=== PATIENT | male | born 1990 | race Caucasian/White ===

== ENCOUNTER 2025-01-21 10:27 | Outpatient (REF) | payer MEDICAID, SELFPAY ==
[2025-01-21 11:47] LABS: MANUAL DIFF FLAG NO
[2025-01-21 12:03] LABS: Hematocrit 45.4 % (42.0-52.0); Hemoglobin 15.4 g/dl (14.0-18.0); Imm Gran Abs Auto 0.01 X10*3/uL (0.00-0.03); Imm Gran Pct Auto 0.2 % (0.0-0.4); Lymphocytes Absolute Auto 1.8 X10*3/uL (1.2-4.9); Mean Corpuscular HGB Conc 33.9 g/dl (31.0-36.0); Mean Corpuscular Hemoglobin 30.8 pg (27.0-33.0); Mean Corpuscular Volume 90.8 fL (80.0-98.0); NRBC Abs Auto 0.000 X10*3/uL (0.0-0.012); NRBC Pct Auto 0.0 /100WBC (0.0-0.2); Platelet Count 213 X10*3/uL (160-400); Red Blood Count 5.00 X10*6/uL (4.60-5.80); White Blood Count 4.8 X10*3/uL (4.8-10.8)
--- OUTSIDE RECORDS SUMMARY | 2025-01-21 12:22 | XMS_ITS | Clinical Summary ---
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 Associated with blurred vision. Pt reports the headache lasted until the next day when he was seen in the ER and treated. 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 There is no hemorrhage or acute territorial infarct. No significant white matter disease, No hydrocephalus.Visualized paranasal sinuses are clear. Mastoid air cells are clear.There was some stranding of the scalp at the posterior vertex without underlying fracture evident. Today patient tells me the headache has not returned but he reports intermittent left ocular pain for years. Etiology? Plan: Repeat CT to ensure that stranding of the scalp at the posterior vertex has resolved. Neurology consult, Ophthalmology evaluation Ocular pain, left eye 01/02/2025 Assessment & Plan (01/02/2025 10:03 AM EDT): Pt reports intermittent left ocular pain for years associated with redness. On exam today no abnormalities Plan: Ophthalmology evaluation Encounters Date Type Department Care Team Description 01/02/2025 9:30 AM EDT Office Visit [facility] [address] [place] [address] Matt Baron MD Ocular pain, left eye (Primary Dx); Nonintractable episodic headache, unspecified headache type 01/02/2025 Travel 01/01/2025 Telephone [facility] [address] [place] [address] Brenda Hobson MA chart prep 12/26/2024 Patient Outreach [facility] [address] [place] [address] Matt Baron MD Pre-visit Planning ([facility] unable to reach, Disconnected) from Last 3 Months Family History Medical History Relation Name Comments Diabetes Father Hypertension Father Uterine cancer Mother Relation Name Status Comments Father Mother Social History Tobacco Use Types Packs/Day Years Used Date Smoking Tobacco: Every Day Cigarettes Passive Smoke Exposure: Current Smokeless Tobacco: Never Tobacco Cessation:Ready to Q uit: Not Asked; Counseling Given: Not Answered Depression Answer Date Recorded Patient Health Questionnaire-9 Score 1 01/02/2025 Patient Health Questionnaire-9 Score 1 01/02/2025 Last PHQ-9: Questionnaire Data Not on file 0 01/02/2025 Housing Stability Answer Date Recorded What is your housing situation today? I have edgarmaci ramirez 01/02/[address] you li ve. Do you have problems with any of the following? None of the above 01/02/2025 Food Insecurity Answer Date Recorded Within the past 12 months, y ou worried that your food would run out before you got money to buy more: Never True 01/02/2025 Within the past 12 months,th e food you bought just didn't last and you didn't have enough money to get more: Never True Transportation Answer Date Recorded In the past 12 months, has l ack of transportation kept you from medical appts, meetings, work or from getting things needed for daily living? No 01/02/2025 Depression Answer Date Recorded Patient Health Questionnaire-2 Score 0 01/02/2025 Internet Access Answer Date Recorded Internet Access Q1 No 01/02/2025 Internet Access Q2 Not on file 01/02/2025 Sex and Gender Information Value Date Recorded Sex Assigned at Male 04/23/2024 2:51 PM EST Legal Sex Male 1:43 PM EST Gender Identity Male 04/23/2024 2:51 PM EST Sexual Orientation Straight 04/23/2024 2: 51 PM EST Last Filed Vital Signs Vital Sign Reading Time Taken Comments Blood Pressure 90/60 01/02/2025 9:38 AM EDT Pulse 55 01/02/2025 9:38 AM EDT Temperature 36 C (96.8 F) 01/02/2025 9:38 AM EDT Respiratory Rate 16 01/02/2025 9:38 AM EDT Oxygen Saturation 100% 01/02/2025 9:38 AM EDT Inhaled Oxygen Concentration - - Weight 49 kg (108 lb) 01/02/2025 9:38 AM EDT Height 171.6 cm (5' 7.57 ) 01/02/2025 9:38 AM ED T Body Mass Index 16.63 01/02/2025 9:38 AM EDT Plan of Treatment Upcoming Encounters Date Type Department Care Team (Late st Contact Info) Description 03/25/2025 10:15 AM EST Office Visit [facility] [address] [place] [address] Matt Baron MD [address] [place] [address] Health Maintenance Due Date Last Done Comments HIV Screening 1992 Lipid Panel 1992 SDOH Screening 1992 Family Planning (PISQ) 07/05/2007 HPV Vaccines (1 - Male 3-dos e series) 07/05/2007 Hepatitis C Screening 2010 DTaP/Tdap/Td Vaccines (1 - Tdap) 07/05/2011 Hepatitis B Vaccines (1 of 3 - 19+ 3-dose series) 07/05/2011 Pneumococcal Vaccine: Pediatrics (0 to 5 Years) and At-Risk Patients (6 to 49) Years (1 of 2 - PCV) 07/05/2011 COVID-19 Vaccine (1 - 2023-2 5 season) 2024 Influenza Vaccine (#1) 2024 Alcohol/Substance Use Screening 01/02/2026 01/02/2025 Depression Screening 01/02/2026 01/02/2025, 01/02/2025 Disability Screening 01/02/2026 01/02/2025 Tobacco Screening 01/02/2026 01/02/2025 Zoster Vaccines (1 of 2) 2042 RSV Patients and Patients Aged 60 years or older (1 - 1-dose 75+ series) 07/05/2067 HIB Vaccines Aged Out No longer eligi ble based on patient's age to complete this topic Hepatitis A Vaccines Aged Out No long er eligible based on patient's age to complete this topic IPV Vaccines Aged Out No longer eligi ble based on patient's age to complete this topic Meningococcal B Vaccine Aged Out No l onger eligible based on patient's age to complete this topic Meningococcal Vaccine Aged Out No neisha siirsha eligible based on patient's age to complete this topic RSV under 20 months Aged Out No longe r eligible based on patient's age to complete this topic Rotavirus Vaccines Aged Out No longer eligible based on patient's age to complete this topic Procedures Procedure Name Priority Date/Time Associated Diagnosis Comments CBC WITH AUTO DIFFERENTIAL Routine 01/21/2025 10:46 AM EDT Ocular pain, left eye from Last 3 Months Results * (ABNORMAL) CBC auto differential (01/21/2025 10:46 AM EDT) White Blood Count 4.8 4.8 - 10.8 X10*3/uL [facility] Red Blood Count 5.00 4.60 - 5.80 X10*6/uL [facility] Hemoglobin 15.4 14.0 - 18.0 g/dl [facility] Hematocrit 45.4 42.0 - 52.0 % [facility] Mean Corpuscular Volume 90.8 80.0 - 98.0 fL [facility] Mean Corpuscular Hemoglobin 30.8 27.0 - 33.0 pg [facility] Mean Corpuscular HGB Conc 33.9 31.0 - 36.0 g/dl [facility] Red Cell Distribution Width 12.1 11.0 - 16.0 % [facility] Platelet Count 213 160 - 400 X10*3/uL [facility] Mean Platelet Volume 10.4 9.4 - 12.4 fL [facility] Neutrophils Percent Auto 49.1 45 - 73 % [facility] Imm Gran Pct Auto 0.2 0.0 - 0.4 % [facility] Lymphocytes Percent Auto 37.1 20 - 40 % [facility] Monocytes Percent Auto 12.0(H) 2 - 11 % [facility] Eosinophils Percent Auto 0.8 0 - 4 % [facility] Basophils Percent Auto 0.8 0 - 2 % [facility] NRBC Pct Auto 0.0 0.0 - 0.2 /100WBC [facility] Neutrophils Absolute Auto 2.3 2.0 - 8.3 x10*3/uL [facility] Imm Gran Abs Auto 0.01 0.00 - 0.03 X10*3/uL [facility] Lymphocytes Absolute Auto 1.8 1.2 - 4.9 X10*3/uL [facility] Monocytes Absolute Auto 0.6 0.1 - 1.2 X10*3/uL [facility] Eosinophils Absolute Auto 0.0 0.0 - 0.4 X10*3/uL [facility] Basophils Absolute Auto 0.0 0.0 - 0.2 X10*3/uL [facility] NRBC Abs Auto 0.000 0.0 - 0.012 X10*3/uL [facility] Blood Venous blood specimen / Unknown 01/21/2025 10:46 AM EDT 01/21/2025 11:45 AM EDT us Matt Harding MD LAB BLOOD ORDERABLES Final Result [facility] [address] [place] [address] [phone] from Last 3 Months Insurance [facility] C3 Care Teams Driver License 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
--- OUTSIDE RECORDS SUMMARY | 2025-01-21 12:22 | XMS_ITS | Clinical Summary ---
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 Role Phone Physician, No Pcp Primary Care Provider Unavaila ble Allergies Active Allergy Reactions Criticality Noted Date Comments Penicillin Swelling 09/11/2024 Medications No known medications Active Problems No known active problems Medical History Medical History Date Comments Patient denies medical problems Social History Tobacco Use Types Packs/Day Years Used Date Smoking Tobacco: Every Day Cigarettes Smokeless Tobacco: Former Tobacco Cessation:Ready to Q uit: Not Asked; Counseling Given: Not Answered Alcohol Use Standard Drinks/Week Comments Never 0 (1 standard drink = 0.6 oz pur e alcohol) Sex and Gender Information Value Date Recorded Sex Assigned at Not on file Legal Sex Male 11:40 AM EDT Gender Identity Not on file Sexual Orientation Not on file Obstetrics History Last Filed Vital Signs Vital Sign Reading Time Taken Comments Blood Pressure 108/56 09/11/2024 3:12 PM EDT Pulse 50 09/11/2024 3:12 PM EDT Temperature 36.7 C (98.1 F) 09/11/2024 3:12 PM EDT Respiratory Rate 16 09/11/2024 3:12 PM EDT Oxygen Saturation 100% 09/11/2024 3:12 PM EDT Inhaled Oxygen Concentration - - Weight 46.3 kg (102 lb) 09/11/2024 11:50 AM EDT Height 170.2 cm (5' 7 ) 09/11/2024 11:50 AM EDT Body Mass Index 15.98 09/11/2024 11:50 AM EDT Plan of Treatment Health Maintenance Due Date Last Done Comments DTaP,Tdap,and Td Vaccines (1 - Tdap) 07/05/2011 Hepatitis B Vaccines (1 of 3 - 19+ 3-dose series) 07/05/2011 Pneumococcal Vaccine: Pediat rics (0 to 5 Years) and At-Risk Patients (6 to 49 Years) (1 of 2 - PCV) 07/05/2011 HPV Vaccines (1 - 3-dose SCD M series) 07/05/2019 Depression Screening 04/10/2024 Cholesterol Screening (Lipid Panel) 09/11/2024 HIV Screening 09/11/2024 Hepatitis C Screening 09/11/2024 Social Influencers of Health Screening 09/11/2024 COVID-19 Vaccine (1 - 2023-2 5 season) 2024 Influenza Vaccine (#1) 2024 RSV Immunization Adult Patie nts (1 - 1-dose 75+ series) 07/05/2067 HIB Vaccines Aged Out No longer eligi ble based on patient's age to complete this topic Hepatitis A Vaccines Aged Out No long er eligible based on patient's age to complete this topic IPV Vaccines Aged Out No longer eligi ble based on patient's age to complete this topic MMR Vaccines Aged Out No longer eligi ble based on patient's age to complete this topic Meningococcal ACWY Vaccine Aged Out N o longer eligible based on patient's age to complete this topic Meningococcal B Vaccine Aged Out No l onger eligible based on patient's age to complete this topic RSV Immunization Patients Un na 20 months Aged Out No longer eligible b ased on patient's age to complete this topic Varicella Vaccines Aged Out No longer eligible based on patient's age to complete this topic Insurance MEDICAID - [place] Care Teams Pan Cleaner Relationship Specialty Start Date End Date Physician, No Pcp PCP - General 09/11/24
[2025-01-21 12:55] LABS: Alanine Aminotransferase 40 U/L (0-40); Albumin Level 4.5 g/dL (3.5-5.0); Alkaline Phosphatase 93 U/L (39-117); Anion Gap 9 (12-20); Aspartate Amino Transferase 33 U/L (5-37); Blood Urea Nitrogen 17 mg/dL (9-16); Calcium 9.0 mg/dL (8.4-10.2); Carbon Dioxide 28 mmol/L (22-29); Chloride 109 mmol/L (96-108); Estimated Glomerular Filt Rate > 60; Potassium 4.3 mmol/L (3.3-5.1); Sodium 142 mmol/L (135-145); Total Protein 7.2 g/dL (6.5-8.0)
== END 2025-01-21 10:28 | disposition home or self-care (01) ==
LOC: HO.HHCL 10:27
PROVIDERS: PCP Internal Medicine; Visit Provider Internal Medicine
DX: H57.12 Ocular pain, left eye (principal)
CPT/HCPCS: 36415; 80053; 85025; 85652; 86140